=== PATIENT | male | born 1980 | race Asian ===

== ENCOUNTER 2021-04-19 03:10 | Emergency (ER) | payer OTHER ==
[~2021-04-19] VITALS: Ht 180.3 cm; Wt 81.6 kg
[2021-04-19] MEDS ORDERED: ONDANSETRON HCL/PF 4 MG/2 ML VIAL IVP ONE (04:00)
[2021-04-19] MEDS ORDERED: IV NS 0.9% 1,000 ML BAG IV ONE (04:00)
[2021-04-19] MEDS ORDERED: ONDANSETRON HCL/PF 4 MG/2 ML VIAL ONE (04:01)
--- NOTE | 2021-04-19 04:05 | NUR ---
PATIENT BIBSELF C/O LEFT SHOUDLER PAIN THAT RADIATES TO LEFT ARM AFTER WAKING UP, MULTIPLE EPISODES OF VOMITING . PATIENT TESTED COVID POSITIVE SATURDAY AT URGENT CARE. PATIENT IS A/O X 4, RR EVEN AND UNLABORED, NO SOB NOTED. PATIENT CONNECTED TO MONITORS.
--- NOTE | 2021-04-19 04:10 | NUR ---
IV LINE EST. BLOOD WORK COLLECTED SENT TO LAB
[2021-04-19 04:15] LABS: BASOPHILS % (AUTO) 0.3 % (0.0-2.0); EOSINOPHILS % (AUTO) 0.6 % (0.0-6.0); HEMATOCRIT 50 % (39-51); HEMOGLOBIN 17.3 g/dL (13.5-17.5); MEAN CORPUSCULAR HGB CONC 35 g/dl (31.0-36.0); MEAN CORPUSCULAR VOLUME 88 fL (80-96); MONOCYTES # (AUTO) 1.1 K/uL (0.1-1.30); MONOCYTES % (AUTO) 15.5 % (2.0-12.0); NEUTROPHILS % (AUTO) 69.6 % (43.0-81.0); PLATELET COUNT (AUTO) 209 K/uL (150-450); RED BLOOD CELL COUNT(AUTO) 5.63 MIL/uL (4.5-6.0); WHITE BLOOD COUNT (AUTO) 7.1 K/uL (4.3-11.0)
[2021-04-19] MEDS ORDERED: KETOROLAC TROMETHAMINE INJ 30 MG/ML VIAL ONE (04:19)
--- NOTE | 2021-04-19 04:26 | NUR ---
RAD AT BEDSIDE
[2021-04-19 04:27] LABS: CALCIUM, SERUM 9.1 mg/dL (8.5-10.1); CARBON DIOXIDE 28 mmol/L (21-32); CHLORIDE 101 mmol/L (98-107); CREATININE 0.8 mg/dL (0.6-1.3); GLUCOSE 114 mg/dL (74-106); POTASSIUM 3.9 mmol/L (3.5-5.1); SODIUM SERUM 136 mmol/L (136-145); UREA NITROGEN, BLOOD 11 mg/dL (7-18)
[2021-04-19] MEDS ORDERED: KETOROLAC TROMETHAMINE INJ 30 MG/ML VIAL IV ONE (04:30)
[2021-04-19 04:33] LABS: ALANINE AMINOTRANSFERASE 36 U/L (12-78); ALBUMIN 4.2 g/dL (3.4-5.0); ALKALINE PHOSPHATASE 78 U/L (46-116); ASPARTATE AMINOTRANSFERASE 20 U/L (15-37); BILIRUBIN,DIRECT 0.1 mg/dL (0.0-0.2); BILIRUBIN,TOTAL 0.6 mg/dL (0.2-1.0); TOTAL PROTEIN, SERUM 8.1 g/dL (6.4-8.2)
[2021-04-19] MEDS ORDERED: ONDA4TAB5 PO (04:47)
[2021-04-19 05:02] LABS: BAND % (MANUAL) 2 % (0.0-5.0); NEUTROPHILS % (MANUAL) 68 (42-76)
[2021-04-19 05:03] LABS: LYMPHOCYTES % (MANUAL) 20 % (16-48); MONOCYTES % (MANUAL) 10 % (0-11.0)
[2021-04-19 06:01] VITALS: BP 149/81
--- NOTE | 2021-04-19 06:01 | NUR ---
Patient discharged to home in stable condition. Rx and Written and verbal after care instructions given. Patient verbalizes understanding of instruction.
== END 2021-04-19 06:02 | disposition home or self-care (01) ==
LOC: ER 03:13
DX: M62.838 Other muscle spasm (principal); M54.12 Radiculopathy, cervical region; R11.2 Nausea with vomiting, unspecified; Z86.16 Personal history of COVID-19; R94.31 Abnormal electrocardiogram [ECG] [EKG]; Z98.890 Other specified postprocedural states; Z88.8 Allergy status to other drugs, medicaments and biological substances; Z88.0 Allergy status to penicillin; Z88.1 Allergy status to other antibiotic agents; Z60.2 Problems related to living alone
CPT/HCPCS: 36415; 71045; 80048; 80076; 84484; 85007; 85025; 85730; 93005; 96361; 96374; 96375; 99285; J1885; J2405; J7030

== ENCOUNTER 2025-03-04 17:07 | Emergency (ER) | payer OTHER ==
[~2025-03-04] VITALS: Ht 180.3 cm; Wt 86.2 kg
[~2025-03-04 17:07] MED LIST: ONDA4TAB5 PO
[2025-03-04] MEDS ORDERED: KETOROLAC TROMETHAMINE 15 MG/ML VIAL ONE (18:27)
[2025-03-04] MEDS: IV NS 0.9% 1,000 ML BAG IV ONE (18:30)
[2025-03-04] MEDS: KETOROLAC TROMETHAMINE 15 MG/ML VIAL IV ONE (18:31)
[2025-03-04 18:40] LABS: PLATELET COUNT (AUTO) 264 K/uL (150-450); RED BLOOD CELL COUNT(AUTO) 5.54 MIL/uL (4.5-6.0); RED CELL DISTRIBUTION WIDTH 13.0 % (11.5-15.0); WHITE BLOOD COUNT (AUTO) 7.1 K/uL (4.3-11.0)
[2025-03-04 18:49] LABS: CALCIUM, SERUM 9.1 mg/dL (8.5-10.1); CREATININE 0.9 mg/dL (0.6-1.3); SODIUM SERUM 140.0 mmol/L (136-145); UREA NITROGEN, BLOOD 12.0 mg/dL (7-18)
[2025-03-04] MEDS ORDERED: PROCHLORPERAZINE EDISYLATE 10 MG/2 ML VIAL ONE (19:10)
[2025-03-04] MEDS ORDERED: LIDOCAINE 5% (PATCH) 1 EA PATCH TP ONE (19:10)
[2025-03-04] MEDS: LIDOCAINE 5% (PATCH) 1 EA PATCH TP SCH (19:17)
[2025-03-04] MEDS: DIPHENHYDRAMINE HCL 12.5 MG/5 ML UDC PO ONE (19:17)
[2025-03-04] MEDS: PROCHLORPERAZINE EDISYLATE 10 MG/2 ML VIAL IVP ONE (19:17)
[2025-03-04] MEDS ORDERED: LIDO700A30 TP (19:35)
[2025-03-04] MEDS ORDERED: SUMA25TA10 PO (19:35)
[2025-03-04] MEDS ORDERED: IBUP-1490 PO (19:35)
[2025-03-04 19:47] VITALS: BP 146/90; TEMP 98; O2SAT 99
== END 2025-03-04 19:48 | disposition home or self-care (01) ==
LOC: ER 17:19
DX: G43.909 Migraine, unspecified, not intractable, without status migrainosus (principal); I10 Essential (primary) hypertension; Z88.0 Allergy status to penicillin; Z88.1 Allergy status to other antibiotic agents
CPT/HCPCS: 99284; 96374; 96361; 96375; 85025; 80048; 36415; J1885; J0780; Q0163; J7030